=== PATIENT | female | born 1980 | race Two or more races ===

== ENCOUNTER 2018-03-01 09:55 | Inpatient (IN) | payer OTHER, BC ==
[2018-03-01] MEDS: TERBUTALINE 1 MG/ML INJ SC (11:31)
[2018-03-01 12:28] LABS: ADD UMIC NO; UR ASCORBIC ACID NEGATIVE (NEGATIVE); UR BACTERIA FEW /HPF (NONE SEEN); UR BILIRUBIN (Dip) NEGATIVE (NEGATIVE); UR BLOOD (Dip) NEGATIVE (NEGATIVE); UR CLARITY SLIGHTLY CLOUDY (CLEAR); UR COLOR YELLOW (YELLOW); UR GLUCOSE (Dip) NEGATIVE (NEGATIVE); UR KETONES (Dip) NEGATIVE (NEGATIVE); UR LEUKOCYTE ESTERASE (Dip) NEGATIVE Leu/ul (NEGATIVE); UR NITRITE (Dip) NEGATIVE (NEGATIVE); UR RBC 1 /HPF (0-5); UR SPECIFIC GRAVITY (Dip) 1.004 (1.003-1.030); UR SQUAMOUS EPITHELIAL CELL FEW /HPF (FEW); UR TOTAL PROTEIN (Dip) NEGATIVE (NEGATIVE); UR UROBILINOGEN (Dip) NEGATIVE (NEGATIVE); UR WBC 2 /HPF (0-5)
[2018-03-01] MEDS: LACTATED RINGER'S 1,000 ML IV ×4 (13:39→23:04)
[2018-03-01] MEDS ORDERED: OXYTOCIN 30 UNITS/LR 500 ML IV (14:00)
[2018-03-01] MEDS ORDERED: MISOPROSTOL 200 MCG TAB PR (14:00)
[2018-03-01] MEDS ORDERED: METHYLERGONOVINE 0.2 MG INJ IM (14:00)
[2018-03-01] MEDS ORDERED: CARBOPROST 250 MCG INJ IM (14:00)
[2018-03-01 14:45] LABS: ADD MAN DIFF? NO
[2018-03-01 14:49] LABS: WHITE BLOOD COUNT 8.6 10^3/ul (4.8-10.8)
[2018-03-01 14:49] LABS: BASOPHILS % 0.2 % (0.0-2.0); EOSINOPHILS # 0.1 10^3/ul (0.0-0.5); EOSINOPHILS % 0.7 % (0.0-7.0); HEMATOCRIT 29.9 % (37.0-47.0); HEMOGLOBIN 10.2 g/dl (12.0-16.0); LYMPHOCYTES # 1.4 10^3/ul (0.8-2.9); LYMPHOCYTES % 16.2 % (15.0-51.0); MEAN CORPUSCULAR HGB CONC 34.1 g/dl (32.0-37.0); MEAN CORPUSCULAR VOLUME 96.8 fl (82.0-101.0); MEAN PLATELET VOLUME 10.5 fl (7.4-10.4); MONOCYTE # 0.7 10^3/ul (0.3-0.9); MONOCYTES % 7.6 % (0.0-11.0); NEUTROPHIL # 6.4 10^3/ul (1.6-7.5); NEUTROPHILS % 74.6 % (39.0-77.0); PLATELET COUNT 303 10^3/UL (140-415); RED BLOOD COUNT 3.09 10^6/ul (4.20-5.40); RED CELL DISTRIBUTION WIDTH 13.1 % (11.5-14.5)
[2018-03-01 15:45] LABS: PROTIME 12.2 Sec (11.9-14.9)
[2018-03-01 15:46] LABS: PARTIAL THROMBOPLASTIN TIME 22.7 Sec (25.0-35.0)
[2018-03-01] MEDS: CITRIC ACID/SODIUM CITRATE 15 ML CUP PO (21:35)
[2018-03-01] MEDS: METOCLOPRAMIDE 10 MG INJ IV (21:35)
[2018-03-01] MEDS: FAMOTIDINE 20 MG INJ IV (21:38)
[2018-03-01] MEDS ORDERED: BUPIVACAINE 0.75%/DEXT (SPINAL) 2 ML INJ (23:13)
[2018-03-01] MEDS ORDERED: morphine SULFATE/PF (10 MG/10 ML) INJ (23:13)
[2018-03-01] MEDS ORDERED: ONDANSETRON 4 MG INJ (23:29)
[2018-03-01] MEDS ORDERED: PHENYLephrine (100 MCG/ML) 10ML SYG (23:34)
[2018-03-01] MEDS ORDERED: MIDAZOLAM 1 MG/ML 2 ML INJ (23:57)
[2018-03-02] MEDS ORDERED: PROCHLORPERAZINE 10 MG INJ IV
[2018-03-02] MEDS ORDERED: FENTAnyl 50 MCG/ML VIAL IV ×2
[2018-03-02] MEDS ORDERED: MEPERIDINE 25 MG INJ IV
[2018-03-02] MEDS ORDERED: HYDROmorphONE 1 MG/5 ML IV SYRINGE IV ×3
[2018-03-02] MEDS ORDERED: OXYTOCIN 30 UNITS/LR 500 ML IV ×2 (00:13→02:00)
[2018-03-02] MEDS: CEFAZOLIN 2 GM/50 ML (PMX) 50 ML IV (01:12)
[2018-03-02] MEDS ORDERED: ZOLPIDEM 5 MG TAB PO ×2 (01:30→05:00)
[2018-03-02] MEDS ORDERED: NALOXONE (0.4 MG/ML) INJ IV ×2 (01:30→05:00)
[2018-03-02] MEDS ORDERED: ONDANSETRON 4 MG INJ IV ×2 (01:30→05:00)
[2018-03-02] MEDS ORDERED: DIPHENHYDRAMINE 50 MG INJ IV ×3 (01:30→05:00)
[2018-03-02] MEDS ORDERED: HYDROmorphONE 0.5 MG/0.5 ML SYG IV ×3 (01:30→05:00)
[2018-03-02] MEDS ORDERED: KETOROLAC 30 MG INJ IV ×2 (01:30)
[2018-03-02] MEDS ORDERED: METHYLERGONOVINE 0.2 MG TAB PO (02:00)
[2018-03-02] MEDS ORDERED: MISOPROSTOL 200 MCG TAB PR (02:00)
[2018-03-02] MEDS ORDERED: METHYLERGONOVINE 0.2 MG INJ IM (02:00)
[2018-03-02] MEDS ORDERED: CARBOPROST 250 MCG INJ IM (02:00)
[2018-03-02] MEDS ORDERED: LANOLIN 7 GM TUBE TOP (02:00)
[2018-03-02] MEDS: FENTAnyl 50 MCG/ML VIAL IV (02:35)
[2018-03-02] MEDS: OXYTOCIN 30 UNITS/LR 500 ML IV ×2 (02:40→03:30)
[2018-03-02] MEDS: ONDANSETRON 4 MG INJ IV (03:04)
[2018-03-02] MEDS: DEXTROSE 5%-LR 1,000 ML IV ×3 (03:30→18:01)
[2018-03-02] MEDS: SENNA/DOCUSATE NA (8.6MG/50MG) TAB PO ×2 (08:21→21:28)
[2018-03-02] MEDS: KETOROLAC 30 MG INJ IV (18:01)
[2018-03-02 20:59] LABS: RAPID PLASMA REAGIN NONREACTIVE (NR)
[2018-03-02] MEDS: HYDROmorphONE 0.5 MG/0.5 ML SYG IV (21:28)
[2018-03-03] MEDS: HYDROCODONE/APAP (5/325) TAB PO ×3 (00:42→15:52)
[2018-03-03] MEDS: DEXTROSE 5%-LR 1,000 ML IV ×2 (01:31→09:31)
[2018-03-03] MEDS: IBUPROFEN 800 MG TAB PO ×3 (05:46→21:30)
[2018-03-03 07:44] LABS: ADD MAN DIFF? NO
[2018-03-03 07:49] LABS: BASOPHILS % 0.2 % (0.0-2.0); EOSINOPHILS # 0.2 10^3/ul (0.0-0.5); EOSINOPHILS % 1.8 % (0.0-7.0); HEMATOCRIT 31.6 % (37.0-47.0); HEMOGLOBIN 10.7 g/dl (12.0-16.0); LYMPHOCYTES # 1.7 10^3/ul (0.8-2.9); LYMPHOCYTES % 14.1 % (15.0-51.0); MEAN CORPUSCULAR HEMOGLOBIN 33.1 pg (29.0-33.0); MEAN CORPUSCULAR HGB CONC 33.9 g/dl (32.0-37.0); MEAN CORPUSCULAR VOLUME 97.8 fl (82.0-101.0); MEAN PLATELET VOLUME 9.8 fl (7.4-10.4); MONOCYTE # 0.9 10^3/ul (0.3-0.9); NEUTROPHIL # 9.3 10^3/ul (1.6-7.5); NEUTROPHILS % 76.6 % (39.0-77.0); PLATELET COUNT 306 10^3/UL (140-415); RED BLOOD COUNT 3.23 10^6/ul (4.20-5.40); RED CELL DISTRIBUTION WIDTH 13.1 % (11.5-14.5)
[2018-03-03 07:49] LABS: WHITE BLOOD COUNT 12.1 10^3/ul (4.8-10.8)
[2018-03-03] MEDS: SENNA/DOCUSATE NA (8.6MG/50MG) TAB PO ×2 (09:17→21:30)
[2018-03-04] MEDS: HYDROCODONE/APAP (5/325) TAB PO ×3 (04:15→14:21)
[2018-03-04] MEDS: IBUPROFEN 800 MG TAB PO ×2 (05:58→13:29)
[2018-03-04] MEDS: SENNA/DOCUSATE NA (8.6MG/50MG) TAB PO (08:39)
[2018-03-05] MEDS ORDERED: DIPHTH/TET/ACEL PERTUSS (ADULT) 0.5 ML VIAL IM* (09:00)
[2018-03-05] MEDS ORDERED: MEASLES,MUMPS,RUBELLA VACCINE INJ SC* (09:00)
== END 2018-03-04 19:30 | disposition home or self-care (01) | DRG 766 ==
LOC: OBT 09:55 → L-D 03-02 01:10 → PP1 03-02 03:20 → OBT 14:00 → L-D 14:00
PROC: 10D00Z1 Extraction of Products of Conception, Low, Open Approach (ICD-10-PCS; principal; 2018-03-02)
DX: O34.219 Maternal care for unspecified type scar from previous cesarean delivery (principal); Z3A.38 38 weeks gestation of pregnancy; Z37.0 Single live birth
CPT/HCPCS: 36415; 81001; 81003; 85025; 85610; 85730; 86592; 86850; 86900; 86901; 93970; 96360; 96372; 99464